=== PATIENT | male | born 1960 | race Caucasian/White ===

== ENCOUNTER 2024-10-15 18:10 | Emergency (ER) | payer BC, SELFPAY ==
[2024-10-15 18:16] VITALS: BP 153/81
[2024-10-15 21:03] VITALS: BMI 27.7
[2024-10-15 21:05] VITALS: BP 141/76
--- NOTE | 2024-10-15 22:45 | ED.GENMED ---
History of Present Illness
General
Chief Complaint: Skin Problem
Time Seen by Provider: 10/15/24 22:08
History of Present Illness
History of Present Illness:
63-year-old male without significant past medical history presenting for worsening rash. Patient notes that he started to breakdown a rash about a week ago. He saw his primary care doctor and was using a hydrocortisone cream. He saw the
white washer today who thought that he may have a contact dermatitis. Patient was started on Keflex for possible component of cellulitis and also had additional prescription for topical hydrocortisone. Patient notes in the past day since seeing
the white washer, his right arm has been increasingly red. He denies fever or systemic symptoms. He denies any known exposures, denies being outside or any bug bite. Denies any new foods or detergents. Does note some pruritus. Denies
additional acute medical complaint
Phy Exam
Physical Exam
Physical Exam:
General: Well-appearing, no clinical signs of dehydration, nontoxic and in no acute distress
HEENT: protecting airway
Neck: appears supple
CV: Normal heart rate
Resp: No accessory muscle use, no increased work of breathing
Abd: No distention
Extremities: No deformities, no swelling
Neuro: alert, no focal neurologic deficit
: deferred
Rectal: deferred
Psych: Normal affect
Skin: Patchy areas of erythema including the right upper extremity, left upper extremity, left side of the neck. There is a scabbing component to the skin, dry. No vesicular component. No sign of erythema migrans. At the right upper extremity
there is also redness surrounding patchy portion of erythema at the flexural surface of the elbow, which patient reports is new in the past day
Course
Orders/Labs/Results
Orders:
Orders
10/15/24 22:39
Cephalexin Monohydrate [Keflex] 500 mg PO NOW STA
Prednisone [Deltasone] 50 mg PO NOW STA
Sulfamethoxazole/Trimethoprim [Bactrim 400 mg/80 mg] 1 tablet PO NOW STA
10/15/24 22:41
[facility]
Vital Signs
Initial and Last Documented VS:
Initial Vital Signs
Temp Pulse Resp BP Pulse Ox
98.0 F 58 16 153/81 98
10/15/24 18:16 10/15/24 18:16 10/15/24 18:16 10/15/24 18:16 10/15/24 18:16
Last Documented Vital Signs
Temp Pulse Resp BP Pulse Ox
98.0 F 56 20 141/76 97
10/15/24 18:16 10/15/24 22:15 10/15/24 22:15 10/15/24 21:05 10/15/24 22:49
MDM/Problems Addressed
MDM/Problems Addressed:
63-year-old male presenting for worsening rash. Vital signs are normal.
On exam patient is resting comfortably, no acute distress, nontoxic. On examination of patient's rash, does appear consistent with a contact dermatitis. However on examination of the right upper extremity, there is a component of cellulitis with
erythema to the distal right upper extremity. Patient is on Keflex twice daily. Will change the Keflex to 4 times daily and additionally add Bactrim in the setting of potential MRSA. Will also check a Lyme titer given endemic region. Given
worsening symptoms, will also start patient on a oral steroid taper. Also advised emollient cream to the dry areas at the flexural regions of his arms. Patient however is overall well-appearing, feel stable for discharge with continued outpatient
follow-up and reassessment. Prescription sent to pharmacy. Return precautions discussed patient verbalized understanding
*Pulse Oximetry
SaO2: 97
Oxygen Mode of Delivery: Room air
Patient hypoxic: no
*Critical Care Note
Total Time (30-74mins, 75-104mins- exclusive of procedures): Not Applicable
ED Attending Note
-
Portions of this chart may have been created with voice recognition software.� Occasional wrong word or��sound alike� substitutions may have occurred due to the inherent limitations of voice recognition software.
Discharge Plan
Departure
Patient Disposition: Home (Routine Discharge)
Date of Disposition: 10/15/24
Time of Disposition: 22:50
Patient with high blood pressure during this ER visit?: Yes
Condition: Good
Discharge Problem:
Contact dermatitis, Cellulitis of right forearm
Instructions: Skin Rash (DC), Cellulitis (Skin Infection), Adult (DC), BLOOD PRESSURE
Prescriptions:
New
sulfamethoxazole-trimethoprim [Bactrim DS] 800-160 mg tablet
1 tab PO Q12H 7 Days Qty: 14 0RF
cephalexin 500 mg capsule
500 mg PO QID Qty: 14 0RF
prednisone 10 mg Tablet
See Rx Instructions .ROUTE .COMPLEX Qty: 45 0RF
Rx Instructions:
Take By Mouth:
50 mg daily x3 days, 40 mg daily x3 days,
30 mg daily x3 days, 20 mg daily x3 days,
10 mg daily x3 days
Referrals:
NONE,* [Family Provider, Internal Medicine]
Activity Restrictions/Additional Instructions:
You were seen in the emergency department for a skin rash
We suspect you have a contact dermatitis and you were started on an oral steroid. There is also component of suspected cellulitis to right upper extremity so you were prescribed Bactrim and your dosage of Keflex was increased. Please take as
directed.
Please follow-up closely with your primary care physician.
Return to the emergency department for any worsening of your symptoms, or any development of chest pain, difficulty breathing, abdominal pain with persistent vomiting and inability to tolerate food or liquid by mouth (concern for dehydration),
weakness, headache or confusion, fever greater than 100.4, or any additional symptoms that are concerning to you.
Thank you for choosing [facility].
Interventions
Interventions:
*Risk Screen - Suicide Last Done: 10/15/24 18:16
*General Assessment Last Done: 10/15/24 21:03
*Neglect/Abuse Screening Last Done: 10/15/24 18:16
*ED- Fall Risk Assessment Last Done: 10/15/24 21:03
*ED COVID-19 Vaccine History Last Done: 10/15/24 21:03
ED-Skin Assessment Last Done: 10/15/24 21:03
Discharge Date and Time
Print Language: ANGOLAN
[2024-10-15] MEDS: DELTASONE 50 MG PO (23:01)
[2024-10-15] MEDS: KEFLEX 500 MG PO (23:01)
[2024-10-15] MEDS: BACTRIM 400 MG/80 MG 1 TABLET PO (23:08)
[2024-10-18 12:06] LABS: Lyme Antibody Screen, EIA Negative (Negative)
== END 2024-10-15 23:14 | disposition home or self-care (01) ==
LOC: EMR 18:10
PROVIDERS: EMERGENCY PHYSICIAN Student in an Organized Health Care Education/Training Program
DX: L03.113 Cellulitis of right upper limb (principal); L25.9 Unspecified contact dermatitis, unspecified cause; L29.9 Pruritus, unspecified; R03.0 Elevated blood-pressure reading, without diagnosis of hypertension
CPT/HCPCS: 99283; 86618